=== PATIENT | male | born 1985 | race Caucasian/White ===

== ENCOUNTER 2020-10-21 15:44 | Inpatient (IN) | payer OTHER ==
[~2020-10-21] VITALS: Ht 177.8 cm; Wt 133.8 kg
[2020-10-21 15:54] VITALS: BP 187/120
[2020-10-21] MEDS ORDERED: COREG3.125 MG PO (15:56)
[2020-10-21] MEDS ORDERED: LOSARTAN POTAS100 MG PO (15:56)
[2020-10-21] MEDS ORDERED: NORVASC10 MG PO (15:57)
[2020-10-21] MEDS ORDERED: ALLOPURINOL 10100 M3 PO (15:57)
[2020-10-21] MEDS ORDERED: INDOMETHACIN SR75 MG PO (15:57)
[2020-10-21 16:19] LABS: URINE BILIRUBIN NEGATIVE (Negative); URINE BLOOD TRACE (Negative); URINE CLARITY CLEAR; URINE COLOR STRAW; URINE GLUCOSE-RANDOM NEGATIVE (Negative); URINE KETONES NEGATIVE (Negative); URINE LEUKOCYTES-REFLEX NEGATIVE (Negative); URINE NITRITE-REFLEX NEGATIVE (Negative); URINE PROTEIN NEGATIVE (Negative); URINE UROBILINOGEN 0.2 E.U./dl (0.2-1.0)
[2020-10-21 16:20] LABS: ABSOLUTE BASOPHILS 0.1 thou/uL (0.0-0.2); ABSOLUTE EOSINOPHILS 0.2 thou/uL (0.0-0.7); ABSOLUTE LYMPHOCYTES 2.1 thou/uL (0.8-5.3); ABSOLUTE MONOCYTES 1.2 thou/uL (0.0-1.2); ABSOLUTE NEUTROPHILS 12.3 thou/uL (1.6-8.1); BASOPHILS 0.9 %; EOSINOPHILS 1.5 %; HEMATOCRIT 37.1 % (42.0-52.0); HEMOGLOBIN 12.4 gm/dL (14.0-18.0); LYMPHOCYTES 13.3 %; MCH 27.8 pg (26.0-34.0); MCHC 33.5 g/dL (28.0-37.0); MONOCYTES 7.5 %; NUCLEATED RBCS 0 /100WBC; PLATELET COUNT* 478 thou/uL (150-400); POLYS 76.8 %; RBC 4.47 mil/uL (4.50-6.00); RDW-CV 13.9 % (10.5-14.5); WBC 16.1 thou/uL (4.0-11.0)
[2020-10-21 16:27] LABS: CALCIUM 9.3 mg/dL (8.5-10.1); CREATININE 5.4 mg/dL (0.6-1.3); POTASSIUM 4.4 mmol/L (3.5-5.1)
[2020-10-21 16:32] LABS: ALBUMIN 3.3 g/dL (3.4-5.0); TOTAL BILIRUBIN 0.4 mg/dL (<0.1-1.0); TOTAL PROTEIN 9.2 g/dL (6.4-8.2)
[2020-10-21 20:12] VITALS: BP 160/70
[2020-10-22 03:54] LABS: ALBUMIN 2.9 g/dL (3.4-5.0); CALCIUM 8.8 mg/dL (8.5-10.1); POTASSIUM 4.7 mmol/L (3.5-5.1); TOTAL BILIRUBIN 0.6 mg/dL (<0.1-1.0); TOTAL PROTEIN 8.2 g/dL (6.4-8.2)
[2020-10-22 04:05] LABS: ABSOLUTE BASOPHILS 0.1 thou/uL (0.0-0.2); ABSOLUTE EOSINOPHILS 0.2 thou/uL (0.0-0.7); ABSOLUTE LYMPHOCYTES 2.6 thou/uL (0.8-5.3); ABSOLUTE MONOCYTES 1.2 thou/uL (0.0-1.2); ABSOLUTE NEUTROPHILS 8.2 thou/uL (1.6-8.1); BASOPHILS 0.9 %; EOSINOPHILS 1.8 %; HEMATOCRIT 33.9 % (42.0-52.0); HEMOGLOBIN 11.2 gm/dL (14.0-18.0); LYMPHOCYTES 21.2 %; MCH 27.5 pg (26.0-34.0); MCHC 33.2 g/dL (28.0-37.0); MONOCYTES 9.7 %; MPV 7.1 fl. (7.2-11.1); NUCLEATED RBCS 0 /100WBC; PLATELET COUNT* 420 thou/uL (150-400); POLYS 66.4 %; RBC 4.08 mil/uL (4.50-6.00); RDW-CV 13.9 % (10.5-14.5); WBC 12.3 thou/uL (4.0-11.0)
--- NOTE | 2020-10-22 05:00 | NUR ---
PT ARRIVED TO FLOOR FROM ER AT APPROX 2030. ALERT AND ORIENTED X4, POLITE AND COOPERATIVE WITH CARES. SCHEDULED ZOFRAN GIVEN PER DEC FOR NAUSEA. PRN FENTANYL FOR ABDOMINAL PAIN. PIV TO INFUSING TO RIGHT AC WITHOUT DIFFICULTY. NPO SINCE FRIDAY AFTERNOON, 11/20. SLEPT WELL OVERNIGHT. CALL LIGHT IN REACH. HOURLY ROUNDING IN PROGRESS, WILL CONTINUE TO MONITOR.
[2020-10-22 07:43] VITALS: BP 144/83
--- NOTE | 2020-10-22 11:49 | EKG ---
[place] [id number] ELECTROCARDIOGRAM REPORT Name: BUZZ CARLTONKarlos Castro Room: [address] ADM IN ..#: [id number] Admission: 10/21/20 Attend Phys: Amanda Garrison MD Discharge: Date of : 85 Date of Service: 10/21/20 1601 Report #: [id number] THIS REPORT FOR: //name// [facility] ED Test Date: 2020-10-21 Test Time: 16:01:23 Pat Name: ROSEMARY CARLTON Department: Room: [facility] Gender: M [employer] Vehicle [employer]ic: DIANA : 1985 Requested By: Carley Goetz Order Number: [id number] MD: Vince Villasenor Measurements Intervals [place] Rate: 76 P: 60 TX: 165 QRS: 30 QRSD: 93 T: 42 QT: 366 QTc: 412 Interpretive Statements Sinus rhythm No previous ECG available for comparison Electronically Signed On 10-22-2020 11:49:32 KIDS ACTIVITIES COACH by Vince Villasenor [email or web address] <ELECTRONICALLY SIGNED> By: Vince Villasenor MD, [facility] 10/22/20 1149 1601 1601 Vince Villasenor MD, [facility] /EPI
[2020-10-22 16:19] VITALS: BP 142/80
--- NOTE | 2020-10-22 18:34 | NUR ---
PATIENT CURRENTLY SITTING UP WATCHING TV. PATIENT IS A&OX4, PLEASANT AND COOPERATIVE WITH CARES. PATIENT CURRENTLY HAS NS INFUSING AT 125ML/HR IN RIGHT AC, HAS BEEN DRINKING LARGE AMOUNTS OF ICE WATER AND STATES HE IS VOIDING "ALOT". PATIENT HAS DENIED ANY PAIN DURING THIS SHIFT AND HAS BEEN GETTING SCHEDULED IV ZOFRAN FOR NAUSEA, WHICH IS EFFECTIVE. PATIENT IS TOLERATING CLEAR LIQUID DIET AND STATES THAT HE IS "STARVING". PATIENT DENIES ANY NEEDS AT THIS TIME.
[2020-10-22 20:38] VITALS: BP 137/77
--- NOTE | 2020-10-23 05:05 | NUR ---
PT HAS SOME PAIN ISSUES THIS SHIFT. RECEIVED 4 MG MORPHINE AND SCHEDULED ZOFRAN FOR COMFORT. ALERT AND ORIENTED, FLUIDS RUNNING ALL SHIFT. UP AD HALEY. REPORTS GENERAL PAIN IN ABDOMINAL AREA. ROOM AIR, A&O X4. TOLERATING CLEAR LIQUID DIET.
[2020-10-23 05:14] LABS: ABSOLUTE BASOPHILS 0.1 thou/uL (0.0-0.2); ABSOLUTE EOSINOPHILS 0.3 thou/uL (0.0-0.7); ABSOLUTE LYMPHOCYTES 2.7 thou/uL (0.8-5.3); ABSOLUTE NEUTROPHILS 6.6 thou/uL (1.6-8.1); EOSINOPHILS 2.6 %; HEMATOCRIT 33.9 % (42.0-52.0); HEMOGLOBIN 11.2 gm/dL (14.0-18.0); LYMPHOCYTES 25.4 %; MCH 27.8 pg (26.0-34.0); MCV 84.2 fL (80.0-100.0); MONOCYTES 9.5 %; MPV 6.8 fl. (7.2-11.1); NUCLEATED RBCS 0 /100WBC; PLATELET COUNT* 410 thou/uL (150-400); POLYS 61.5 %; RBC 4.02 mil/uL (4.50-6.00); RDW-CV 13.7 % (10.5-14.5); WBC 10.7 thou/uL (4.0-11.0)
[2020-10-23 05:31] LABS: CALCIUM 8.7 mg/dL (8.5-10.1); CREATININE 4.2 mg/dL (0.6-1.3); MAGNESIUM 1.5 mg/dL (1.8-2.4); POTASSIUM 4.7 mmol/L (3.5-5.1)
[2020-10-23 08:00] VITALS: BP 149/91
--- NOTE | 2020-10-23 10:07 | NUR ---
Nutrition: Pt admitte dwith diverticulitis. Assessed for nsg risk 2 points. Wt: 295#, no wt loss recorded. Pt is drinking liquids well, is hungry. Diet advanced to Full liquids now. NS @ 125mL. BUN 41, cr 4.2, alb 2.9. Continue to advance diet as tolerated. No nutrition interventions needed at this time. Low risk.
--- NOTE | 2020-10-23 13:22 | NUR ---
Pt is A&O. Resides at home with his . Independent. No DME. No hx of HH or SNF. Goal is home at dc, no needs anticipated. Cr 4.2, renal following. Pain control. Per Med Assist, Pt does not qualify for [facility]ELINA. Anticipate dc in a few days.
[2020-10-23 16:22] VITALS: BP 163/89
--- NOTE | 2020-10-23 17:23 | NUR ---
PATIENT ALERT AND ORIENTED X 4. VITAL SIGNS STABLE ON ROOM AIR. UP INDEPENDENTLY IN ROOM. IV PATENT WITH FLUIDS INFUSING PER MAR. DENIES PAIN AT THIS TIME. NAUSEA BEING MANAGE WITH IV MEDICATION. HOURLY ROUNDS MAINTAINED THROUGHOUT THE SHIFT. CALL LIGHT WITHIN REACH. NURSING WILL CONTINUE TO MONITOR.
[2020-10-23 20:00] VITALS: BP 173/93
[2020-10-24] VITALS: BP 171/96
--- NOTE | 2020-10-24 05:05 | NUR ---
ASSUMED CARE AT 1930. PATIENT RESTING IN BED. UP AD HALEY IN ROOM. IVF INFUSING TO RT AC. DENIES PAIN AND NAUSEA. VOIDING PER TOILET. TURNS SELF. HOURLY ROUNDS CONTINUE. CALL LITE IN REACH.
[2020-10-24 05:30] LABS: HEMATOCRIT 33.2 % (42.0-52.0); MCH 27.5 pg (26.0-34.0); MCHC 33.2 g/dL (28.0-37.0); MCV 82.9 fL (80.0-100.0); RDW-CV 14.2 % (10.5-14.5); WBC 9.9 thou/uL (4.0-11.0)
[2020-10-24 05:45] LABS: CALCIUM 8.9 mg/dL (8.5-10.1); CREATININE 3.3 mg/dL (0.6-1.3); POTASSIUM 4.6 mmol/L (3.5-5.1)
[2020-10-24 07:20] VITALS: BP 176/96
[2020-10-24 16:47] VITALS: BP 162/90
--- NOTE | 2020-10-24 17:03 | NUR ---
PT REMAINED ALERT AND ORIENTED. PT RESITNG IN BED. FALL RISK PRECAUTIONS IN PLACE. HOURLY ROUNDING COMPLETED.
[2020-10-24 20:30] VITALS: BP 187/90
[2020-10-25] VITALS (7 sets, daily range): BP systolic 149–191; BP diastolic 78–107
[2020-10-25 05:18] LABS: HEMATOCRIT 35.8 % (42.0-52.0); HEMOGLOBIN 11.8 gm/dL (14.0-18.0); MCH 27.5 pg (26.0-34.0); MCV 83.3 fL (80.0-100.0); MPV 7.2 fl. (7.2-11.1); RBC 4.3 mil/uL (4.50-6.00); RDW-CV 13.9 % (10.5-14.5); WBC 11.3 thou/uL (4.0-11.0)
[2020-10-25 05:32] LABS: CALCIUM 8.5 mg/dL (8.5-10.1); CREATININE 2.5 mg/dL (0.6-1.3); POTASSIUM 4.4 mmol/L (3.5-5.1)
--- NOTE | 2020-10-25 07:03 | NUR ---
PT SLEPT WELL OVERNIGHT. HAS DENIED PAIN AND PROBLEMS. PRN HYDRALAZINE GIVEN ONCE THIS SHIFT. TOLERATING DIET WITHOUT N/V. HAS BEEN NPO SINCE MIDNIGHT FOR RENAL US TODAY. NOT NEEDING ZOFRAN OVERNIGHT. UP AD HALEY IN ROOM TO BR TO VOID. ABLE TO USE CALL LITE AND MAKE NEEDS KNOWN.
[2020-10-25] MEDS ORDERED: AUGMENTIN 875-1 EACH PO (09:26)
--- NOTE | 2020-10-25 16:10 | NUR ---
PATIENT DISCHARGED TO HOME. DISCHARGE PAPERS REVIEWED AND SIGNED. PRESCRIPTION AN INFORMATION SHEETS GIVEN. IV REMOVED. PATIENT DENIES ANY FURTHER NEEDS. PATIENT TAKEN BY WHEELCHAIR TO EXIT. LEFT WITH .
== END 2020-10-25 16:10 | disposition home or self-care (01) | DRG 392 ==
LOC: M.ERS 15:44 → M.TBA-ER 18:10 → M.3W 21:19
PROVIDERS: Physician Assistant; Surgery; ADMIT Family Medicine; ATTEND Family Medicine
DX: K57.20 Diverticulitis of large intestine with perforation and abscess without bleeding (principal); N17.9 Acute kidney failure, unspecified; Z68.41 Body mass index [BMI] 40.0-44.9, adult; I10 Essential (primary) hypertension; M10.9 Gout, unspecified; D72.829 Elevated white blood cell count, unspecified; E66.01 Morbid (severe) obesity due to excess calories; E86.0 Dehydration; Z79.899 Other long term (current) drug therapy; Z20.822 Contact with and (suspected) exposure to COVID-19